=== PATIENT | female | born 2005 | race Caucasian/White ===

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

== ENCOUNTER → 2023-07-21 | Outpatient (REF) | payer OTHER ==
[~2023-07-21] MED LIST changes: +AMOX875T2 PO; +ETON1VAG7 PV; -NUVAMIS2 PV
[2023-07-21 12:55] LABS: BASO % 0.4 % (0.0-1.0); EOS # 0.1 10^3/uL (0.0-0.5); EOS % 1.5 % (0.0-3.0); HEMATOCRIT 40.9 % (36.0-47.0); HEMOGLOBIN 13.6 g/dl (12.0-15.5); LYMPH # 0.6 10^3/uL (1.5-5.0); LYMPH % 9.4 % (24.0-44.0); MEAN CORPUSCULAR HEMOGLOBIN 28.7 pg (27.0-33.0); MEAN CORPUSCULAR HGB CONC 33.3 g/dl (32.0-36.5); MEAN CORPUSCULAR VOLUME 86.3 fl (80.0-96.0); MONO # 0.4 10^3/uL (0.0-0.8); MONO % 5.4 % (2.0-8.0); NEUTROPHILS # 5.6 10^3/uL (1.5-8.5); NEUTROPHILS % 83.2 % (36.0-66.0); PLATELET COUNT, AUTOMATED 251 10^3/uL (150-450); RED BLOOD COUNT 4.74 10^6/uL (4.00-5.40); WHITE BLOOD COUNT 6.7 10^3/uL (4.0-10.0)
[2023-07-21 13:30] LABS: THYROID STIMULATING HORMONE 0.614 uIU/ML (0.48-4.17); TOTAL 25(OH) VITAMIN D 9.3 NG/ML (20.0-100.0)
== END ==
LOC: M LAB REF 12:05
PROVIDERS: ATTEND Pediatrics
DX: R00.0 Tachycardia, unspecified (principal); E55.9 Vitamin D deficiency, unspecified

== ENCOUNTER → 2025-01-10 | Outpatient (REF) | payer BC, OTHER ==
[~2025-01-10] MED LIST changes: +FLUO-365 PO; -FLUO20CA22 PO; +ONDA-282 PO; -ONDA4TAB6 PO
== END ==
LOC: M LAB REF 17:10
PROVIDERS: ATTEND Nurse Practitioner Family
DX: R30.0 Dysuria (principal)

== ENCOUNTER 2025-02-28 15:07 | Emergency (ER) | payer BC ==
[~2025-02-28] VITALS: Ht 165.1 cm; Wt 50.0 kg
[2025-02-28 16:08] LABS: BASO # 0.1 10^3/uL (0.0-0.2); BASO % 0.5 % (0.0-1.0); EOS # 0.2 10^3/uL (0.0-0.5); EOS % 2.1 % (0.0-3.0); LYMPH # 3.4 10^3/uL (1.5-5.0); LYMPH % 37.1 % (24.0-44.0); MONO # 0.5 10^3/uL (0.0-0.8); MONO % 5.9 % (2.0-8.0); NEUTROPHILS # 5.0 10^3/uL (1.5-8.5); NEUTROPHILS % 54.3 % (36.0-66.0); PLATELET COUNT, AUTOMATED 312 10^3/uL (150-450)
[2025-02-28 16:18] LABS: KETONE, URINE AUTO RFX NEGATIVE (NEGATIVE); NITRITE, URINE AUTO RFX NEGATIVE (NEGATIVE); RBC, URINE AUTO RFX 1 /HPF (0-3); SQUAM EPITHELIAL CELL UR AURFX 1 /HPF (0-6)
[2025-02-28 16:19] LABS: LEUKOCYTE ESTERASE UR AUTO RFX 1+ (NEGATIVE); WBC, URINE AUTO RFX 13 /HPF (0-3)
[2025-02-28 16:34] LABS: ALT/SGPT 34 U/L (7.0-40); AST/SGOT 28 U/L (<34); CALCIUM LEVEL 9.8 MG/DL (8.5-10.1); CARBON DIOXIDE LEVEL 26 MMOL/L (20-31); CHLORIDE LEVEL 105 MMOL/L (98-107); CREATININE FOR GFR 0.70 MG/DL (0.55-1.30); GLOMERULAR FILTRATION RATE > 90.0 (>60); POTASSIUM SERUM 4.1 MMOL/L (3.5-5.1); SODIUM LEVEL 141 MMOL/L (136-145)
[2025-02-28 16:42] LABS: HCG, SERUM QUALITATIVE NEGATIVE (NEGATIVE)
[2025-02-28 19:59] VITALS: BP 116/58; TEMP 98.7; O2SAT 96
[2025-02-28] MEDS ORDERED: IBUP600T42 PO (20:22)
[2025-02-28 20:43] LABS: HIV 1&2 SCREEN NEGATIVE (NEGATIVE)
[2025-02-28 21:29] LABS: GC DNA AMPLIFICATION NEGATIVE (NEGATIVE)
== END 2025-02-28 20:36 | disposition home or self-care (01) ==
LOC: M ED 15:07
DX: R10.20 Pelvic and perineal pain unspecified side (principal); Z97.5 Presence of (intrauterine) contraceptive device